=== PATIENT | male | born 1960 | race Caucasian/White ===

== ENCOUNTER 2025-05-17 11:25 | Inpatient (IN) ==
[2025-05-17] MEDS: SODIUM CHLORIDE 0.9% 1,000 ML IV SCH ×2 (12:00→19:54)
--- NOTE | 2025-05-17 12:00 | Emergency Department Note ---
Impression & Plan Vasovagal syncope, Rectal bleeding, Sinus pause, Acute dehydration ED Provider Note NAME: DEBRA MEREDITH AGE: 65 SEX: M : 1960 ARRIVES VIA: Walk-In INFORMANT: Patient, ED PROVIDER(S): Dani Degroot MD CHIEF COMPLAINT: GI bleeding MEDICAL DECISION MAKING: Patient presents due to concern for rectal bleeding. IV was established blood work was obtained along with 2 large-bore IVs and IV fluids were ordered. No abdominal pain on exam. The patient's blood work shows a normal white count hemoglobin of 13.8 normal platelet count kidney function is unremarkable. Axillary fluid I was called to the group emergently the patient reportedly had had a sinus pause and had syncopized. The patient was noted to have blood in his underwear. The second IV was placed the patient was placed on 2 L nasal cannula IV fluids ordered POC BMP in addition to H&H and type and screen were ordered. Excellent patient's [id number] BMP did show concern for hemoglobin of 9.9 so I did order 2 units to give. Repeat H&H though did show a relatively unchanged hemoglobin. There was a stat consult in for GI given these initial concerns. I did ask ED charge nurse to call blood bank and just have the 2 units on hold for now. I did speak with Dr. Botello given the patient's sinus pause who agree that this is likely a vagal response likely from the bloody bowel movement and he believes that this is likely situational in nature. Repeat EKG does not show any obvious arrhythmia or ischemia. I did speak with Ning Corley PA-C with Dr. Raymond and the patient was admitted to the medicine service. I also did speak with Caitie De Los Santos PA-C with Dr. Vyas with GI. Patient was admitted to the medicine service. The patient was reassessed and was doing well. The patient was normal cardiac and normotensive. Discussion w/ other healthcare providers: Dr. Botello cardiology Ning Corley PA-C with Dr. Raymond inpatient medicine service Caitie De Los Santos PA-C with Dr. Vyas gastroenterology Prior /Outside records reviewed: None Differential diagnosis: Diverticulitis, AVM, coagulopathy, colitis, inflammatory bowel disease, malignancy, esophagitis, peptic ulcer disease, variceal bleed, gastritis, fissure, hemorrhoids, as well as other pathologies. Diagnostics, as interpreted by me: ECG: Sinus tachycardia, rate 102, normal intervals, normal axis no ST elevations. Repeat EKG interpreted by myself Normal sinus rhythm, rate of 84, normal intervals, normal axis no ST elevations. Cardiac monitoring: An order was placed for continuous cardiac monitoring. The monitor shows a rate of 85 with sinus rhythm. Patient was placed on pulse oximetry Medical decision rules: None Imaging studies: None HPI: Patient presents due to concern for rectal bleeding. The patient states that he noticed this beginning this morning and has had about 6 bowel movements that have been bloody in nature with associated clots. He denies any history of inflammatory bowel disease. Colonoscopy within the last several years and reportedly unremarkable. They did call the triage nurse who referred them here for evaluation. He denies any NSAID use does not use tobacco. He does drink occasionally but not daily. He denies any abdominal pain or nausea vomiting. He did state that he had about 12 ounces of coffee this morning and has not been drinking as much water the last several days. He does not take any blood thinning medications or antiplatelets. PAST MEDICAL HISTORY: See Below PAST SURGICAL HISTORY: See Below SOCIAL HISTORY: See Below HOME MEDICATIONS: See Below ALLERGIES: See Below VITALS: See Below PHYSICAL EXAMINATION: GENERAL: NAD, non-toxic. BMI 36. Wearing glasses. EYE EXAM: Normal conjunctiva. PERRL, no anisocoria and EOM's grossly intact w/o pain. OROPHARYNX: Moist mucus membranes, grossly normal dentition. NECK: Trachea midline, no stridor. LUNGS: Clear to auscultation. Normal chest wall mechanics. HEART: NSR, no MRG. ABDOMEN: Abdomen soft, non-tender, no masses, no rebound or guarding. BACK: No CVA TTP. SKIN: No rashes and no bruising. UPPER EXTREMITIES: Upper extremities are grossly normal. LOWER EXTREMITIES: Grossly normal, no edema. NEURO EXAM: Awake and alert, follows commands, no obvious facial asymmetry, normal speech, moves all 4 extremities. Past Med/Surg History Problem List (Updated 05/17/25 @ 18:24 by Dani Degroot MD) Acute dehydration (Acute) Sinus pause (Acute) Rectal bleeding (Acute) Vasovagal syncope (Acute) Hyperlipidemia BRBPR (bright red blood per rectum) Hypothyroidism HTN (hypertension) Diarrhea Rosacea Hypokalemia Hepatosplenomegaly BPH (benign prostatic hyperplasia) Sepsis Fever (Acute) UTI (urinary tract infection) (Acute) Proteus infection Urinary retention (Acute) Family History Other No pertinent family history Social History Smoking Status: Never smoker Second Hand Exposure: No; Do You Dip or Chew Tobacco: No; Hx Alcohol Use: Yes Alcohol type: beer Hx Substance Use: No Preferred Language: Latvian Communication Ability: Effective Beliefs That Will Affect Care: None Current Living Situation: Spouse Feels Safe at Home: Yes Assistive Devices: None Allergies Allergies Allergy/AdvReac Type Severity Reaction Status Date / Time Sulfa (Sulfonamide Allergy Intermediate RASH, Verified 02/20/18 21:39 Antibiotics) HIVES, ITCHINESS Home Meds Home Medications Medication Instructions Recorded Confirmed Lactobacillus acidophilus 10 1 cap PO TIDM 02/20/18 02/20/18 billion cell capsule (Probiotic) albuterol sulfate 90 mcg/actuation 2 puff inhalation Q4 PRN Shortness 02/20/18 02/20/18 aerosol inhaler (ProAir HFA) Of Breath Or Wheezing ciprofloxacin HCl 500 mg tablet 500 mg PO BID 02/20/18 02/20/18 (Cipro) doxycycline hyclate 100 mg tablet 100 mg PO DAILY 02/20/18 02/20/18 levothyroxine 50 mcg tablet 50 mcg PO DAILY 02/20/18 02/20/18 lisinopril 2.5 mg tablet 2.5 mg PO DAILY 02/20/18 02/20/18 montelukast 10 mg tablet 10 mg PO PM 02/20/18 02/20/18 (Singulair) ddwodbco-zhm-ehmzv acid 0.4 1 tab PO DAILY 02/20/18 02/20/18 mg-lycopene 300 mcg-lutein 250 mcg tablet (Centrum Silver) pravastatin 20 mg tablet 20 mg PO DAILY 02/20/18 02/20/18 sildenafil 25 mg tablet 25 mg PO DAILY PRN Erectile 02/20/18 02/20/18 Dysfunction tamsulosin 0.4 mg capsule (Flomax) 0.4 mg PO DAILY 02/20/18 02/20/18 Results & Data (ED) Vital Signs Vital Signs - 24 hr 05/17/25 11:29 05/17/25 11:56 05/17/25 11:56 Temperature 36.4 C L Temperature Source Temporal Artery Scan Pulse Rate 110 H 102 H Pulse Rate [Apical] 102 H Respiratory Rate 19 16 16 Respiratory Effort / Characteristics Non-Labored Spontaneous Non-Labored Spontaneous Respiratory Depth Normal Respiratory Pattern Regular Blood Pressure 161/72 H Blood Pressure [Right Arm] 128/66 Blood Pressure Mean 101 Blood Pressure Mean [Right Arm] 86 Pulse Oximetry 96 95 95 Oxygen Delivery Method Room Air Room Air Room Air Sepsis Recent Fever Within 48 Hours No Sepsis New/Unexplained Change in Mental Status N/A Sepsis Action Taken by Nursing No Action Required 05/17/25 12:06 05/17/25 13:00 05/17/25 13:03 Temperature Temperature Source Pulse Rate 98 H 0 L 50 L Pulse Rate [Apical] Respiratory Rate Respiratory Effort / Characteristics Respiratory Depth Respiratory Pattern Blood Pressure Blood Pressure [Right Arm] Blood Pressure Mean Blood Pressure Mean [Right Arm] Pulse Oximetry Oxygen Delivery Method Sepsis Recent Fever Within 48 Hours Sepsis New/Unexplained Change in Mental Status Sepsis Action Taken by Nursing 05/17/25 13:09 05/17/25 13:34 05/17/25 16:53 Temperature Temperature Source Pulse Rate 80 80 Pulse Rate [Apical] 80 Respiratory Rate 16 Respiratory Effort / Characteristics Respiratory Depth Respiratory Pattern Blood Pressure Blood Pressure [Right Arm] 107/51 L Blood Pressure Mean Blood Pressure Mean [Right Arm] 69 Pulse Oximetry 98 Oxygen Delivery Method Room Air Sepsis Recent Fever Within 48 Hours Sepsis New/Unexplained Change in Mental Status Sepsis Action Taken by Nursing 05/17/25 18:09 Temperature Temperature Source Pulse Rate Pulse Rate [Apical] 101 H Respiratory Rate 20 Respiratory Effort / Characteristics Non-Labored Respiratory Depth Normal Respiratory Pattern Blood Pressure Blood Pressure [Right Arm] 129/91 Blood Pressure Mean Blood Pressure Mean [Right Arm] 103 Pulse Oximetry 97 Oxygen Delivery Method Room Air Sepsis Recent Fever Within 48 Hours Sepsis New/Unexplained Change in Mental Status Sepsis Action Taken by [facility] Medications Current Medication List: was personally reviewed by me Laboratory Data Attestation: I reviewed the patient's lab results. 05/17/25 Unknown 05/17/25 11:50 Lab Results 05/17/25 05/17/25 05/17/25 Range/Units 11:50 11:52 12:57 WBC 9.86 (4.8-10.8) K/ul RBC 4.30 L (4.70-6.10) M/uL Hgb 13.8 L (14.0-18.0) g/dL POC Hgb (14.0-18.0) g/dl Hct 38.5 L (42.0-52.0) % POC Hct (42-52) % MCV 89.5 (80.0-100.0) fL MCH 32.1 (25.0-34.0) pg MCHC 35.8 (32.0-36.0) g/dL RDW Std Deviation 41.6 (36.4-46.3) fL RDW Coeff of Hannah 12.5 (11.5-14.5) % Plt Count 145 (130-400) K/uL MPV 11.9 (9.4-12.4) fL Immature Gran % (Auto) 0.3 % Neut % (Auto) 80.6 % Lymph % (Auto) 13.2 % [place] % (Auto) 4.9 % Eos % (Auto) 0.7 % Baso % (Auto) 0.3 % Neut # (Auto) 7.95 H (1.40-6.50) K/uL Lymph # (Auto) 1.30 (1.20-3.40) K/uL [place] # (Auto) 0.48 (0.11-0.59) K/uL Eos # (Auto) 0.07 (0.00-0.50) K/uL Baso # (Auto) 0.03 (0.00-0.20) K/uL Immature Gran # (Auto) 0.03 (0.01-0.20) K/uL PT 11.1 (9.0-12.0) Seconds INR 1.1 (0.9-1.1) APTT 25 (21-31) Seconds PTT Ratio 0.9 POC Sodium (135-144) mmol/L Sodium 139 (136-145) mmol/L POC Potassium (3.3-5.0) mmol/L Potassium 4.0 (3.5-5.1) mmol/L POC Chloride (101-112) mmol/L Chloride 107 (98-107) mmol/L Carbon Dioxide 24 (21-32) mmol/L POC Total CO2 (24-31) mmol/L Anion Gap 8 (3-11) POC Anion Gap (16-25) mmol/L POC BUN (7-18) mg/dl BUN 18 (6-23) mg/dl Creatinine 0.66 (0.6-1.4) mg/dl POC Creatinine (0.6-1.3) mg/dl Est Cr Clr Drug Dosing 134.6 ml/min eGFR 102.80 BUN/Creatinine Ratio 27.3 H (10-20) Glucose 148 H (70-99(Fasting)) mg/dl POC Glucose 122 H (70-99) mg/dl POC Glucose (other) (70-99) mg/dl Calcium 9.4 (8.6-10.3) mg/dl POC Ioniz Calcium Kassi (1.12-1.32) mmol/l Total Bilirubin 0.8 (0.2-1.0) mg/dl AST 20 (13-39) U/L ALT 18 (7-52) U/L Alkaline Phosphatase 87 (34-104) U/L Total Protein 6.8 (6.0-8.3) gm/dl Albumin 4.2 (3.4-5.0) gm/dl Globulin 2.6 (2.5-4.0) gm/dl Albumin/Globulin Ratio 1.6 (0.9-2) POC Stool Occult Blood Positive A (Negative) Blood Type Antibody Screen Crossmatch 05/17/25 05/17/25 05/17/25 Range/Units 13:00 13:30 13:50 WBC (4.8-10.8) K/ul RBC (4.70-6.10) M/uL Hgb 13.4 L (14.0-18.0) g/dL POC Hgb 9.9 L 10.2 L (14.0-18.0) g/dl Hct 37.2 L (42.0-52.0) % POC Hct 29 L 30 L (42-52) % MCV (80.0-100.0) fL MCH (25.0-34.0) pg MCHC (32.0-36.0) g/dL RDW Std Deviation (36.4-46.3) fL RDW Coeff of Hannah (11.5-14.5) % Plt Count (130-400) K/uL MPV (9.4-12.4) fL Immature Gran % (Auto) % Neut % (Auto) % Lymph % (Auto) % [place] % (Auto) % Eos % (Auto) % Baso % (Auto) % Neut # (Auto) (1.40-6.50) K/uL Lymph # (Auto) (1.20-3.40) K/uL [place] # (Auto) (0.11-0.59) K/uL Eos # (Auto) (0.00-0.50) K/uL Baso # (Auto) (0.00-0.20) K/uL Immature Gran # (Auto) (0.01-0.20) K/uL PT (9.0-12.0) Seconds INR (0.9-1.1) APTT (21-31) Seconds PTT Ratio POC Sodium 141 141 (135-144) mmol/L Sodium (136-145) mmol/L POC Potassium 3.8 3.8 (3.3-5.0) mmol/L Potassium (3.5-5.1) mmol/L POC Chloride 106 106 (101-112) mmol/L Chloride (98-107) mmol/L Carbon Dioxide (21-32) mmol/L POC Total CO2 23 L 20 L (24-31) mmol/L Anion Gap (3-11) POC Anion Gap 17.0 19.0 (16-25) mmol/L POC BUN 16 16 (7-18) mg/dl BUN (6-23) mg/dl Creatinine (0.6-1.4) mg/dl POC Creatinine 0.8 0.7 (0.6-1.3) mg/dl Est Cr Clr Drug Dosing ml/min eGFR BUN/Creatinine Ratio (10-20) Glucose (70-99(Fasting)) mg/dl POC Glucose (70-99) mg/dl POC Glucose (other) 158 H 156 H (70-99) mg/dl Calcium (8.6-10.3) mg/dl POC Ioniz Calcium Kassi 1.13 1.14 (1.12-1.32) mmol/l Total Bilirubin (0.2-1.0) mg/dl AST (13-39) U/L ALT (7-52) U/L Alkaline Phosphatase (34-104) U/L Total Protein (6.0-8.3) gm/dl Albumin (3.4-5.0) gm/dl Globulin (2.5-4.0) gm/dl Albumin/Globulin Ratio (0.9-2) POC Stool Occult Blood (Negative) Blood Type O Positive Antibody Screen NEGATIVE Crossmatch See Detail 05/17/25 Range/Units Unknown WBC (4.8-10.8) K/ul RBC (4.70-6.10) M/uL Hgb 11.4 L (14.0-18.0) g/dL POC Hgb (14.0-18.0) g/dl Hct 32.6 L (42.0-52.0) % POC Hct (42-52) % MCV (80.0-100.0) fL MCH (25.0-34.0) pg MCHC (32.0-36.0) g/dL RDW Std Deviation (36.4-46.3) fL RDW Coeff of Hannah (11.5-14.5) % Plt Count (130-400) K/uL MPV (9.4-12.4) fL Immature Gran % (Auto) % Neut % (Auto) % Lymph % (Auto) % [place] % (Auto) % Eos % (Auto) % Baso % (Auto) % Neut # (Auto) (1.40-6.50) K/uL Lymph # (Auto) (1.20-3.40) K/uL [place] # (Auto) (0.11-0.59) K/uL Eos # (Auto) (0.00-0.50) K/uL Baso # (Auto) (0.00-0.20) K/uL Immature Gran # (Auto) (0.01-0.20) K/uL PT (9.0-12.0) Seconds INR (0.9-1.1) APTT (21-31) Seconds PTT Ratio POC Sodium (135-144) mmol/L Sodium (136-145) mmol/L POC Potassium (3.3-5.0) mmol/L Potassium (3.5-5.1) mmol/L POC Chloride (101-112) mmol/L Chloride (98-107) mmol/L Carbon Dioxide (21-32) mmol/L POC Total CO2 (24-31) mmol/L Anion Gap (3-11) POC Anion Gap (16-25) mmol/L POC BUN (7-18) mg/dl BUN (6-23) mg/dl Creatinine (0.6-1.4) mg/dl POC Creatinine (0.6-1.3) mg/dl Est Cr Clr Drug Dosing ml/min eGFR BUN/Creatinine Ratio (10-20) Glucose (70-99(Fasting)) mg/dl POC Glucose (70-99) mg/dl POC Glucose (other) (70-99) mg/dl Calcium (8.6-10.3) mg/dl POC Ioniz Calcium Kassi (1.12-1.32) mmol/l Total Bilirubin (0.2-1.0) mg/dl AST (13-39) U/L ALT (7-52) U/L Alkaline Phosphatase (34-104) U/L Total Protein (6.0-8.3) gm/dl Albumin (3.4-5.0) gm/dl Globulin (2.5-4.0) gm/dl Albumin/Globulin Ratio (0.9-2) POC Stool Occult Blood (Negative) Blood Type Antibody Screen Crossmatch Administered Medications Piperacillin Sod/Tazobactam Sod (Zosyn) 4.5 gm in 100 mls @ 25 mls/hr IV ONE ONE; Protocol Stop: 05/17/25 20:44 Last Admin: 05/17/25 17:18 Dose: 25 mls/hr Documented By: SYLVESTER Discontinued Medications Sodium Chloride (Nss) 1,000 mls @ 999 mls/hr IV .Q1H1M MIKE Stop: 05/17/25 13:00 Last Infusion: 05/17/25 13:04 Dose: Infused Documented By: Admin: 05/17/25 12:00 Dose: 999 mls/hr Documented By: NATHALIE Sodium Chloride (Nss) 1,000 mls @ 999 mls/hr IV .Q1H1M ONE Stop: 05/17/25 13:56 Last Infusion: 05/17/25 14:08 Dose: Infused Documented By: Admin: 05/17/25 12:56 Dose: 999 mls/hr Documented By: SHEYLA Sodium Chloride (Nss) 500 mls @ 999 mls/hr IV .Q31M ONE Stop: 05/17/25 14:25 Last Infusion: 05/17/25 14:39 Dose: Infused Documented By: Admin: 05/17/25 13:59 Dose: 999 mls/hr Documented By: SHEYLA Ioversol (Optiray 320 125ml) 118 ml IV ONCE ONE Stop: 05/17/25 15:31 Last Admin: 05/17/25 15:30 Dose: 118 ml Documented By: MONA Imaging Data Radiologist's Impression: Abdomen/Pelvis CTA 05/17/25 14:24 CT angio abdomen pelvis w con CLINICAL HISTORY: 65 years-old Male with BRBPR, syncope acute rectal bleeding COMPARISON STUDY: CT abdomen and pelvis 02/21/2018 TECHNIQUE: Following the IV administration of 118 cc of Optiray, CT angiogram of the abdomen and pelvis was performed from the lung bases the proximal femora. Images are reviewed in the axial, sagittal, and coronal planes. 3-D MIPS images are created and assessed. All measurements were obtained according to NASCET criteria. IV contrast was administered without complication. A dose lowering technique was utilized adhering to the principles of ALARA. CT DOSE: 1473.41 mGy.cm FINDINGS: CTA: Fusiform dilation of the ascending thoracic aorta is partially imaged measuring up to approximately 7 cm. There is mild atherosclerosis of the abdominal aorta and branch vessels. There is no abdominal aortic aneurysm or dissection. There is patency of the celiac trunk, superior and inferior mesenteric and bilateral renal arteries. The iliac and imaged femoral arteries appear patent. No active extravasation or retroperitoneal hemorrhage. CT ABDOMEN/PELVIS: Clear lung bases. No pneumatosis or pneumoperitoneum. The spleen measures 16 cm in length. Unremarkable pancreas, gallbladder and adrenal glands. The liver is within normal limits. There are a few nonobstructing calculi within the bilateral kidneys measuring up to 4 mm. 2.6 cm right renal cyst. No hydronephrosis. Mild prostatomegaly. Partial distention of the urinary bladder. Small fat filled right inguinal hernia. Postoperative changes of the bilateral inguinal distributions. Mildly inflamed fat filled umbilical hernia, diastases of 3.8 cm. A right spigelian hernia demonstrates diastases of 11 mm. No bowel obstruction. Colonic diverticulosis with mild acute diverticulitis of the hepatic flexure and proximal transverse colon. No abscess. Normal appendix. Unremarkable soft tissues. No acute fracture. IMPRESSION: 1. Mild acute diverticulitis of the ascending and transverse colon. 2. No bowel obstruction, pneumoperitoneum or abscess. 3. Partially imaged aneurysm dilation of the ascending thoracic aorta measures up to approximately 7 cm. This could be further evaluated with dedicated CTA of the chest. 4. Otherwise unremarkable CTA of the abdomen and pelvis. 5. Nonobstructing bilateral nephrolithiasis. 6. Fat filled umbilical hernia with mild inflammatory changes. ACT 112: Negative or not required by law. The above report was generated using voice recognition software. It may contain grammatical, syntax or spelling errors. Electronically signed by: Say Dykes M.D. 05/17/2025 4:00 PM Discharge Plan Visit Data Chief Complaint: Rectal Bleed Stated Complaint: VERY BLOOD BOWEL MOVEMENTS/ALL LIQUID ED Provider: Dani Degroot Discharge Problem: Vasovagal syncope, Rectal bleeding, Sinus pause, Acute dehydration Patient Disposition: Admitted As Inpatient Condition: Good Forms Stand Alone Forms: [employer] Prescriptions Prescriptions: No Action ciprofloxacin HCl [Cipro] 500 mg Tablet 500 mg PO BID Rx Instructions: STARTED 02/19/18 FOR 10 DAYS. sildenafil 25 mg Tablet 25 mg PO DAILY PRN (Reason: Erectile Dysfunction) tamsulosin [Flomax] 0.4 mg Capsule 0.4 mg PO DAILY levothyroxine 50 mcg Tablet 50 mcg PO DAILY montelukast [Singulair] 10 mg Tablet 10 mg PO PM pravastatin 20 mg Tablet 20 mg PO DAILY albuterol sulfate [ProAir HFA] 90 mcg/actuation Hfa Aerosol Inhaler 2 puff INHALATION Q4 PRN (Reason: Shortness Of Breath Or Wheezing) lisinopril 2.5 mg Tablet 2.5 mg PO DAILY doxycycline hyclate 100 mg Tablet 100 mg PO DAILY fjosbzfc-zga-CV-lycopen-lutein [Centrum Silver] 0.4-300-250 mg-mcg-mcg Tablet 1 tab PO DAILY Lactobacillus acidophilus [Probiotic] 10 billion cell Capsule 1 cap PO TIDM Referrals Referrals: Bruce Hastings MD [Hospitalist] -
[2025-05-17 12:23] LABS: Hematocrit (blood only) 38.5 % (42.0-52.0); Hemoglobin 13.8 g/dL (14.0-18.0); Immature Granulocytes # (auto) 0.03 K/uL (0.01-0.20); Immature Granulocytes % (auto) 0.3 %; Mean Corpuscular Hemoglobin 32.1 pg (25.0-34.0); Mean Corpuscular Volume 89.5 fL (80.0-100.0); Platelet Count 145 K/uL (130-400); RDW Standard Deviation 41.6 fL (36.4-46.3); Red Blood Count 4.30 M/uL (4.70-6.10); White Blood Count 9.86 K/ul (4.8-10.8)
[2025-05-17 12:41] LABS: Alanine Aminotransferase 18.0 U/L (7-52); Albumin Globulin Ratio 1.6 (0.9-2); Albumin Level 4.2 gm/dl (3.4-5.0); Alkaline Phosphatase 87.0 U/L (34-104); Anion Gap 8.0 (3-11); Bilirubin,Total 0.8 mg/dl (0.2-1.0); Blood Urea Nitrogen 18.0 mg/dl (6-23); Calcium 9.4 mg/dl (8.6-10.3); Carbon Dioxide 24.0 mmol/L (21-32); Chloride 107.0 mmol/L (98-107); Creatinine Clr Calc Pharmacy 134.6 ml/min; Globulin 2.6 gm/dl (2.5-4.0); Glucose 148.0 mg/dl (70-99(Fasting)); Potassium 4.0 mmol/L (3.5-5.1); Sodium 139.0 mmol/L (136-145); Total Protein 6.8 gm/dl (6.0-8.3)
[2025-05-17 12:49] LABS: INR 1.1 (0.9-1.1); Partial Thromboplastin Time 25 Seconds (21-31); Prothrombin Time 11.1 Seconds (9.0-12.0)
[2025-05-17] MEDS: SODIUM CHLORIDE 0.9% 1,000 ML IV ONE (12:56)
[2025-05-17 13:32] LABS: Hematocrit (blood only) 37.2 % (42.0-52.0); Hemoglobin 13.4 g/dL (14.0-18.0)
[2025-05-17] MEDS ORDERED: SODIUM CHLORIDE 0.9% 100 ML IV PRN ×2 (13:33→19:21)
[2025-05-17] MEDS: SODIUM CHLORIDE 0.9% 500 ML IV ONE (13:59)
--- NOTE | 2025-05-17 14:07 | History & Physical Report ---
<Statement entered by Eduin Raymond MD - 05/19/25 09:14> I was present at the bedside, performed koehler exam points and discussed the patient below with the PA at the time of admission and transfer. I agree with the below documented assessment and plan, transfer to tertiary care for acute GI bleed complicated by complex vascular comorbidities. Case reviewed with promotional advertising assistant vascular surgery during the triage and decision making process. Date of Service May 17, 2025 Assessment & Plan (1) BRBPR (bright red blood per rectum): (2) Diarrhea: (3) Hypothyroidism: (4) HTN (hypertension): (5) Hyperlipidemia: Plan Pt is a 65 M with a PMHx significant for Asthma, Hypothyroidism, HTN, HLD, BPH who presented to the ED c/o BRBPR w/ AM BMs. While in the ED, pt received CTAP revealed moderate colonic diverticulosis without evidence of diverticulitis, enlarged prostate w/ bladder outlet obstruction, bladder wall thickening suggestive of cystitis, hepatomegaly w/ severe steatosis, nonobstructing Lt renal calculi. H+H 13.8 --> 13.4 --> 11.4 --> 10.2 while in ED. pRBCs ordered and currently on standby. #Thoracic Aneurysm - 05/17 CTA of Abdomen and Pelvis w/ fusiform ascending thoracic aorta measuring up to 7cm; Pt w/out CP and palpitations at time of admission -BP 107/51, pt currently asx -CT results discussed with Dr Miller, who additionally reviewed CT; pt should be transferred to tertiary care facility -Messaged Dr Hernandez to notify about results of CT Actively working on transfer to tertiary care facility so that patient may be assessed by cardiothoracic surgery. #BRBPR | Diarrhea | Diverticulitis - Last Colonoscopy 04/2021 from [facility], pt unable to access records on portal; 05/17 CTAP w/ diverticulosis w/ no acute evidence of diverticulitis; 05/17 CTA-AP w/ mild acute diverticulitis of ascending and transverse colon, no abscess or obstruction -GI consulted -NPO -Protonix 40mg IV BID -NSS 0.9 @80 mL/hr -Monitor VS closely -STAT H+H ordered -H+H Q4H, monitor closely -CBC, BMP in AM -2 units pRBCs ordered. If additional units needed or pt becomes hemodynamically unstable, MTP should be initiated. #Sinus Pause noted on Rhythm Strip in ED - -Most likely vagal event secondary to blood loss -Admit Med/Tele -EKG prn palpitations or chest pain #Hypothyroidism - No acute concerns -Continue Levothyroxine 50mcg #HTN | HLD - No acute concerns -Continue Lisinopril 10, pravastatin 40 #Asthma - No acute concerns -Continue Albuterol #BPH - Not currently managed with medication; 05/17 CTAP w/ enlarged prostate w/ bladder outlet obstruction + bladder wall thickening consistent w/ cystitis - pt is asx #Rosacea - no acute concerns -Doxycycline 100 po daily VTE Proph: SCDs, chemo proph deferred d/t rectal bleeding Dispo: Admit PCU History of Present Illness Chief Complaint: BRBPR Primary Care Provider: Floresita Dixon Pt is a 65 M with a PMHx significant for Asthma, Hypothyroidism, HTN, HLD, BPH, and Rosacea who presented to the ED c/o BRBPR w/ AM BMs. Pt states that around 09:30 this AM that he felt a gurgling sensation in his abdomen and he when he went to be bathroom, he experienced a bowel movement where he passed a large amount of bright red blood. Pt noted that he experienced a total of 5 bloody bowel movements prior to coming to ED. He notes that he had experienced a WNL BM at 06:30 this AM and was very alarmed by the large amount of blood passed there after. Pt notes that he reported to the ED after his 5th bloody BM. Pt states that he does not take any anticoagulants at home. His last colonoscopy was in April of 2021 but the results are currently unknown, attempted to access online report but was unable to. Pt denies lightheadedness/dizziness, chest pain, palpitations, abd pain, N/V/D, SOB, cough, congestion, sore throat, and H/A. Pt notes that he had 3 crackers for breakfast and has not consumed anything else this AM. Pt notes that he noticed a "small abnormal bump" near his rectum about 1.5wks [employer], that was mildly uncomfortable. He notes that he used tucks pads at that time with resolution. Pt was transported to the ED via . While in the ED, pt received CTAP revealed moderate colonic diverticulosis without evidence of diverticulitis, enlarged prostate w/ bladder outlet obstruction, bladderwall thickening suggestive of cystitis, hepatomegaly w/ severe steatosis, nonobstructing Lt renal calculi. H+H 13.8 --> 13.4 --> 11.4 --> 10.2 while in ED. pRBCs ordered and on standby. Pt is being admitted for further evaluation and care. Allergies Allergy/AdvReac Type Severity Reaction Status Date / Time Sulfa (Sulfonamide Allergy Intermediate RASH, Verified 02/20/18 21:39 Antibiotics) HIVES, ITCHINESS Home Medications Medication Instructions Recorded Confirmed Type Lactobacillus acidophilus 10 1 cap PO TIDM 02/20/18 02/20/18 History billion cell capsule (Probiotic) albuterol sulfate 90 mcg/actuation 2 puff inhalation Q4 PRN Shortness 02/20/18 02/20/18 History aerosol inhaler (ProAir HFA) Of Breath Or Wheezing ciprofloxacin HCl 500 mg tablet 500 mg PO BID 02/20/18 02/20/18 History (Cipro) doxycycline hyclate 100 mg tablet 100 mg PO DAILY 02/20/18 02/20/18 History levothyroxine 50 mcg tablet 50 mcg PO DAILY 02/20/18 02/20/18 History lisinopril 2.5 mg tablet 2.5 mg PO DAILY 02/20/18 02/20/18 History montelukast 10 mg tablet 10 mg PO PM 02/20/18 02/20/18 History (Singulair) xycspqom-cyr-jghzr acid 0.4 1 tab PO DAILY 02/20/18 02/20/18 History mg-lycopene 300 mcg-lutein 250 mcg tablet (Centrum Silver) pravastatin 20 mg tablet 20 mg PO DAILY 02/20/18 02/20/18 History sildenafil 25 mg tablet 25 mg PO DAILY PRN Erectile 02/20/18 02/20/18 History Dysfunction tamsulosin 0.4 mg capsule (Flomax) 0.4 mg PO DAILY 02/20/18 02/20/18 History Past Med/Surg History Problem List (Updated 05/17/25 @ 18:24 by Dani Degroot MD) Acute dehydration (Acute) Sinus pause (Acute) Rectal bleeding (Acute) Vasovagal syncope (Acute) Hyperlipidemia BRBPR (bright red blood per rectum) Hypothyroidism HTN (hypertension) Diarrhea Rosacea Hypokalemia Hepatosplenomegaly BPH (benign prostatic hyperplasia) Sepsis Fever (Acute) UTI (urinary tract infection) (Acute) Proteus infection Urinary retention (Acute) Family History Other No pertinent family history Social History Smoking Status: Never smoker Second Hand Exposure: No; Do You Dip or Chew Tobacco: No; Hx Alcohol Use: Yes Alcohol type: beer Hx Substance Use: No Preferred Language: Palauan Communication Ability: Effective Beliefs That Will Affect Care: None Current Living Situation: Spouse Feels Safe at Home: Yes Assistive Devices: None Review of Systems Review of Systems: All systems reviewed & are unremarkable except as noted in Subjective Physical Exam Physical Exam: General: Pt is a 65 y/o obese M in NAD in bed. VS: reviewed, remarkable - BP 107/51 Skin: Warm and dry; no lesions or ulcerations Respiratory: CTA bilat, no adventitious sounds noted. Chest expansion is full and symmetrical Cardio: RRR no murmurs GI: Round, normoactive BS x4, tender to palpation of lower abdomen; Note 3 hats were ween in bathroom with BR blood present in them, produced photos of home bloody BMs which appeared to have a notable amount of blood MSK: FROM of extremities, no deformities Extremities: no edema Neuro: A&Ox4, cooperative Results & Data Results & Data Vital Signs (Past 12 Hours) Vital Signs Temp Pulse Pulse Resp BP BP Pulse Ox 05/17/25 13:34 80 16 107/51 L 98 05/17/25 13:09 80 05/17/25 13:03 50 L 05/17/25 13:00 0 L 05/17/25 12:06 98 H 05/17/25 11:56 102 H 16 95 05/17/25 11:56 102 H 16 128/66 95 05/17/25 11:29 97.5 F L 110 H 19 161/72 H 96 O2 Del Method 05/17/25 13:34 Room Air 05/17/25 13:09 05/17/25 13:03 05/17/25 13:00 05/17/25 12:06 05/17/25 11:56 Room Air 05/17/25 11:56 Room Air 05/17/25 11:29 Room Air Laboratory Results Reviewed: CBC, CMP, INR, FOBT Diagnostic Findings Reviewed: CTAP, CTA abdomen pelvis PG Care Time/CCT Total # of Minutes Spent Total Time Spent with Patient: Total time spent is greater than 50% in coordination of care (as documented) at patient's floor/unit and/or counseling patient: Coding Level of Care Code 67860 INT INP/OBS CARE 3/75MIN Diagnoses BRBPR (bright red blood per rectum) K62.5 Diarrhea R19.7 Hypothyroidism E03.9 HTN (hypertension) I10 Hyperlipidemia E78.5 Time Spent (min) 48 Comment [id number]
[2025-05-17 14:15] LABS: Hematocrit (blood only) 32.6 % (42.0-52.0); Hemoglobin 11.4 g/dL (14.0-18.0)
--- NOTE | 2025-05-17 14:25 | Gastrointestinal Consultation ---
Date of Consultation May 17, 2025 Assessment & Plan (1) BRBPR (bright red blood per rectum): Accompanied by flushing and syncope. Patient hypotensive at present. Hgb did drop from 13.8-->11.4. -Continue to monitor H/H. -CTA abd/pelvis for further evaluation. -Obtain copies of most recent colonoscopy from [facility] -Further recommendations pending results of this testing ADDENDUM: Patient's CTA returned as follows: IMPRESSION: 1. Mild acute diverticulitis of the ascending and transverse colon. 2. No bowel obstruction, pneumoperitoneum or abscess. 3. Partially imaged aneurysm dilation of the ascending thoracic aorta measures up to approximately 7 cm. This could be further evaluated with dedicated CTA of the chest. 4. Otherwise unremarkable CTA of the abdomen and pelvis. 5. Nonobstructing bilateral nephrolithiasis. 6. Fat filled umbilical hernia with mild inflammatory changes. -We will add IV Zosyn for diverticulitis coverage. Will defer further work-up of aortic aneurysm to primary team. Supervising Physician Co-Signing Physician Notes I saw and examined this patient with our nurse practitioner and agree with her assessment and plan. Clinical picture consistent with lower GI bleed possible cause for syncopal episode. CTA suggest some mild mid colonic diverticulitis. This would be an unusual presentation this diverticulitis is unlikely associated with significant GI bleeding. Suspect the most likely etiology is diverticular bleeding aggravated by recent use of NSAIDs. However in light of the findings on CT that is reasonable to empirically treat with a course of antibiotics. He will ultimately need a colonoscopy. CT scan suggests a thoracic aneurysm if there is concern would do a CT of the chest as radiology recommends. History of Present Illness Reason for Consultation: Lower GI bleeding History of Present Illness Patient is a 65 yo male who presented to [facility] with BRBPR. He notes that he was in his usual state of health, but felt warm, flushed, and dizzy at home. He then went to the restroom and passed BRBPR. He called his PCP who sent him to the ED. In the ED, he had a witnessed syncopal episode with sinus pause. He then had several episodes of BRBPR after that. No abdominal pain. No ASA/Plavix/blood thinners. No smoking history. He used NSAIDs yesterday and today but notes this is not typical for him. H/H 11.4/32.6. Hgb upon presentation was 13.8. BP 105/60 at the time of my visit. Last colonoscopy reportedly several years ago at [facility]. He believes this was unremarkable. I do not have a copy of this at the time of his admission. He is no longer having BRBPR by the time of my visit. He denies any abdominal pain. Allergies Allergy/AdvReac Type Severity Reaction Status Date / Time Sulfa (Sulfonamide Allergy Intermediate RASH, Verified 02/20/18 21:39 Antibiotics) HIVES, ITCHINESS Home Medications Medication Instructions Recorded Confirmed Type Lactobacillus acidophilus 10 1 cap PO TIDM 02/20/18 02/20/18 History billion cell capsule (Probiotic) albuterol sulfate 90 mcg/actuation 2 puff inhalation Q4 PRN Shortness 02/20/18 02/20/18 History aerosol inhaler (ProAir HFA) Of Breath Or Wheezing ciprofloxacin HCl 500 mg tablet 500 mg PO BID 02/20/18 02/20/18 History (Cipro) doxycycline hyclate 100 mg tablet 100 mg PO DAILY 02/20/18 02/20/18 History levothyroxine 50 mcg tablet 50 mcg PO DAILY 02/20/18 02/20/18 History lisinopril 2.5 mg tablet 2.5 mg PO DAILY 02/20/18 02/20/18 History montelukast 10 mg tablet 10 mg PO PM 02/20/18 02/20/18 History (Singulair) cukhpaky-yzm-jqzlp acid 0.4 1 tab PO DAILY 02/20/18 02/20/18 History mg-lycopene 300 mcg-lutein 250 mcg tablet (Centrum Silver) pravastatin 20 mg tablet 20 mg PO DAILY 02/20/18 02/20/18 History sildenafil 25 mg tablet 25 mg PO DAILY PRN Erectile 02/20/18 02/20/18 History Dysfunction tamsulosin 0.4 mg capsule (Flomax) 0.4 mg PO DAILY 02/20/18 02/20/18 History Patient History Family History Other No pertinent family history Social History Smoking Status: Never smoker Second Hand Exposure: No; Do You Dip or Chew Tobacco: No; Hx Alcohol Use: Yes Alcohol type: beer Hx Substance Use: No Preferred Language: Luxembourger Communication Ability: Effective Beliefs That Will Affect Care: None Current Living Situation: Spouse Feels Safe at Home: Yes Assistive Devices: None Review of Systems Constitutional: + sweats Respiratory: no cough and no dyspnea Cardiovascular: no chest pain Gastrointestinal: + problem reported (BRBPR); no abdominal pain, no heartburn, no nausea, no vomiting, no hematemesis, no dysphagia, no change in bowel habits, no constipation and no diarrhea/loose stools Physical Exam Constitutional: well developed Respiratory: normal respiratory effort Cardiovascular: Rate/Rhythm: regular rate Gastrointestinal (Abdomen): normal bowel sounds, soft, nontender, no hepatosplenomegaly Psychiatric: Orientation: alert and oriented x 3 Results & Data Vital Signs (Past 12 Hours) Vital Signs Temp Pulse Pulse Resp BP BP Pulse Ox 05/17/25 13:34 80 16 107/51 L 98 05/17/25 13:09 80 05/17/25 13:03 50 L 05/17/25 13:00 0 L 05/17/25 12:06 98 H 05/17/25 11:56 102 H 16 95 05/17/25 11:56 102 H 16 128/66 95 05/17/25 11:29 36.4 C L 110 H 19 161/72 H 96 O2 Del Method 05/17/25 13:34 Room Air 05/17/25 13:09 05/17/25 13:03 05/17/25 13:00 05/17/25 12:06 05/17/25 11:56 Room Air 05/17/25 11:56 Room Air 05/17/25 11:29 Room Air Laboratory Results Laboratory Results - last 48 hr 05/17/25 05/17/25 05/17/25 11:50 11:52 12:57 WBC 9.86 RBC 4.30 L Hgb 13.8 L POC Hgb Hct 38.5 L POC Hct MCV 89.5 MCH 32.1 MCHC 35.8 RDW Std Deviation 41.6 RDW Coeff of Hannah 12.5 Plt Count 145 MPV 11.9 Immature Gran % (Auto) 0.3 Neut % (Auto) 80.6 Lymph % (Auto) 13.2 [place] % (Auto) 4.9 Eos % (Auto) 0.7 Baso % (Auto) 0.3 Neut # (Auto) 7.95 H Lymph # (Auto) 1.30 [place] # (Auto) 0.48 Eos # (Auto) 0.07 Baso # (Auto) 0.03 Immature Gran # (Auto) 0.03 PT 11.1 INR 1.1 APTT 25 PTT Ratio 0.9 POC Sodium Sodium 139 POC Potassium Potassium 4.0 POC Chloride Chloride 107 Carbon Dioxide 24 POC Total CO2 Anion Gap 8 POC Anion Gap POC BUN BUN 18 Creatinine 0.66 POC Creatinine Est Cr Clr Drug Dosing 134.6 eGFR 102.80 BUN/Creatinine Ratio 27.3 H Glucose 148 H POC Glucose 122 H POC Glucose (other) Calcium 9.4 POC Ioniz Calcium Kassi Total Bilirubin 0.8 AST 20 ALT 18 Alkaline Phosphatase 87 Total Protein 6.8 Albumin 4.2 Globulin 2.6 Albumin/Globulin Ratio 1.6 POC Stool Occult Blood Positive A Blood Type Antibody Screen Crossmatch 05/17/25 05/17/25 05/17/25 13:00 13:30 13:50 WBC RBC Hgb 13.4 L POC Hgb 9.9 L 10.2 L Hct 37.2 L POC Hct 29 L 30 L MCV MCH MCHC RDW Std Deviation RDW Coeff of Hannah Plt Count MPV Immature Gran % (Auto) Neut % (Auto) Lymph % (Auto) [place] % (Auto) Eos % (Auto) Baso % (Auto) Neut # (Auto) Lymph # (Auto) [place] # (Auto) Eos # (Auto) Baso # (Auto) Immature Gran # (Auto) PT INR APTT PTT Ratio POC Sodium 141 141 Sodium POC Potassium 3.8 3.8 Potassium POC Chloride 106 106 Chloride Carbon Dioxide POC Total CO2 23 L 20 L Anion Gap POC Anion Gap 17.0 19.0 POC BUN 16 16 BUN Creatinine POC Creatinine 0.8 0.7 Est Cr Clr Drug Dosing eGFR BUN/Creatinine Ratio Glucose POC Glucose POC Glucose (other) 158 H 156 H Calcium POC Ioniz Calcium Kassi 1.13 1.14 Total Bilirubin AST ALT Alkaline Phosphatase Total Protein Albumin Globulin Albumin/Globulin Ratio POC Stool Occult Blood Blood Type O Positive Antibody Screen NEGATIVE Crossmatch See Detail 05/17/25 Unknown WBC RBC Hgb 11.4 L POC Hgb Hct 32.6 L POC Hct MCV MCH MCHC RDW Std Deviation RDW Coeff of Hannah Plt Count MPV Immature Gran % (Auto) Neut % (Auto) Lymph % (Auto) [place] % (Auto) Eos % (Auto) Baso % (Auto) Neut # (Auto) Lymph # (Auto) [place] # (Auto) Eos # (Auto) Baso # (Auto) Immature Gran # (Auto) PT INR APTT PTT Ratio POC Sodium Sodium POC Potassium Potassium POC Chloride Chloride Carbon Dioxide POC Total CO2 Anion Gap POC Anion Gap POC BUN BUN Creatinine POC Creatinine Est Cr Clr Drug Dosing eGFR BUN/Creatinine Ratio Glucose POC Glucose POC Glucose (other) Calcium POC Ioniz Calcium Kassi Total Bilirubin AST ALT Alkaline Phosphatase Total Protein Albumin Globulin Albumin/Globulin Ratio POC Stool Occult Blood Blood Type Antibody Screen Crossmatch PG Care Time/CCT Total # of Minutes Spent Total Time Spent with Patient: Total time spent is greater than 50% in coordination of care (as documented) at patient's floor/unit and/or counseling patient: Coding Level of Care Code 78927 INT INP/OBS CARE 3/75MIN Diagnoses BRBPR (bright red blood per rectum) K62.5
--- NOTE | 2025-05-17 14:39 | Electrocardiogram Report ---
Test Reason : Blood Pressure : */* mmHG Vent. Rate : 84 BPM Atrial Rate : 84 BPM P-R Int : 188 ms QRS Dur : 88 ms QT Int : 382 ms P-R-T Axes : 56 -5 60 degrees QTcB Int : 451 ms Normal sinus rhythm When compared with ECG of 20-Feb-2018 21:19, Nonspecific T wave abnormality no longer evident in Inferior leads Confirmed by Ricci Botello ([id number]) on 05/17/2025 2:39:10 PM Referred By: Confirmed By: Ricci Botello
[2025-05-17] MEDS: OPTIRAY 320 125ml IV ONE (15:30)
--- NOTE | 2025-05-17 16:01 | CT Scan Report ---
CT angio abdomen pelvis w con CLINICAL HISTORY: 65 years-old Male with BRBPR, syncope acute rectal bleeding COMPARISON STUDY: CT abdomen and pelvis 02/21/2018 TECHNIQUE: Following the IV administration of 118 cc of Optiray, CT angiogram of the abdomen and pelv is was performed from the lung bases the proximal femora. Images are reviewed in the axial, sagittal, and coronal planes. 3-D MIPS images are created and assessed. All measurements were obtained accordi ng to NASCET criteria. IV contrast was administered without complication. A dose lowering technique was utilized adhering to the principles of ALARA. CT DOSE: 1473.41 mGy.cm FINDINGS: CTA: Fusiform dilation of the ascending thoracic aorta is partially imaged measuring up to approximat tequila 7 cm. There is mild atherosclerosis of the abdominal aorta and branch vessels. There is no abdomi nal aortic aneurysm or dissection. There is patency of the celiac trunk, superior and inferior mesent nelida and bilateral renal arteries. The iliac and imaged femoral arteries appear patent. No active ext ravasation or retroperitoneal hemorrhage. CT ABDOMEN/PELVIS: Clear lung bases. No pneumatosis or pneumoperitoneum. The spleen measures 16 cm in length. Unremarkable pancreas, gallbladder and adrenal glands. The liver is within normal limits. Th ere are a few nonobstructing calculi within the bilateral kidneys measuring up to 4 mm. 2.6 cm right renal cyst. No hydronephrosis. Mild prostatomegaly. Partial distention of the urinary bladder. Small fat filled right inguinal hernia. Postoperative changes of the bilateral inguinal distributions. Mild ly inflamed fat filled umbilical hernia, diastases of 3.8 cm. A right spigelian hernia demonstrates d iastases of 11 mm. No bowel obstruction. Colonic diverticulosis with mild acute diverticulitis of the hepatic flexure an d proximal transverse colon. No abscess. Normal appendix. Unremarkable soft tissues. No acute fractur e. IMPRESSION: 1. Mild acute diverticulitis of the ascending and transverse colon. 2. No bowel obstruction, pneumoperitoneum or abscess. 3. Partially imaged aneurysm dilation of the ascending thoracic aorta measures up to approximately 7 cm. This could be further evaluated with dedicated CTA of the chest. 4. Otherwise unremarkable CTA of the abdomen and pelvis. 5. Nonobstructing bilateral nephrolithiasis. 6. Fat filled umbilical hernia with mild inflammatory changes. ACT 112: Negative or not required by law. The above report was generated using voice recognition software. It may contain grammatical, syntax o r spelling errors. Electronically signed by: Say Dykes M.D. 05/17/2025 4:00 PM
[2025-05-17] MEDS: PIPERACILLIN/TAZOBACTAM 4.5 GM/100 ML BAG IV ONE (17:18)
[2025-05-17] MEDS ORDERED: ONDANSETRON INJ 2 MG/ML 2 ML VIAL IV PRN (18:40)
[2025-05-17] MEDS ORDERED: MELATONIN 3 MG TAB PO PRN (18:40)
[2025-05-17] MEDS ORDERED: ACETAMINOPHEN 325 MG TAB PO PRN (18:40)
[2025-05-17] MEDS ORDERED: ALBUTEROL HFA 8 GM INHALER INH PRN (18:40)
[2025-05-17] MEDS ORDERED: NO NSAIDS SCH (18:40)
[2025-05-17 19:23] LABS: Hematocrit (blood only) 33.7 % (42.0-52.0); Hemoglobin 12.0 g/dL (14.0-18.0)
[2025-05-17] MEDS: PANTOprazole 40 MG/10 ML SYR IV SCH (19:54)
[2025-05-17] MEDS: PANTOprazole 40 MG/10 ML IVP IV ONE (19:55)
--- NOTE | 2025-05-17 21:08 | Discharge Summary ---
Discharge Summary Date of Service May 17, 2025 Principal Dx & Hospital Course #1 = Principal Diagnosis (1) BRBPR (bright red blood per rectum): (2) Diarrhea: (3) Hypothyroidism: (4) HTN (hypertension): (5) Hyperlipidemia: Plan Pt is a 65 M with a PMHx significant for Asthma, Hypothyroidism, HTN, HLD, BPH who presented to the ED c/o BRBPR w/ AM BMs. While in the ED, pt received CTAP revealed moderate colonic diverticulosis without evidence of diverticulitis, enlarged prostate w/ bladder outlet obstruction, bladder wall thickening suggestive of cystitis, hepatomegaly w/ severe steatosis, nonobstructing Lt renal calculi. H+H 13.8 --> 13.4 --> 11.4 --> 10.2 while in ED. pRBCs ordered and currently on standby. #Thoracic Aneurysm - 05/17 CTA of Abdomen and Pelvis w/ fusiform ascending thora cic aorta measuring up to 7cm; Pt w/out CP and palpitations at time of admission -BP 107/51, pt currently asx -CT results discussed with Dr Miller, who additionally reviewed CT; pt should be transferred to tertiary care facility -Messaged Dr Hernandez to notify about results of CT Actively working on transfer to tertiary care facility so that patient may be assessed by cardiothoracic surgery. #BRBPR | Diarrhea | Diverticulitis - Last Colonoscopy 04/2021 from [facility], pt unable to access records on portal; 05/17 CTAP w/ diverticulosis w/ no acute evidence of diverticulitis; 05/17 CTA-AP w/ mild acute diverticulitis of ascending and transverse colon, no abscess or obstruction -GI consulted -NPO -Protonix 40mg IV BID -NSS 0.9 @80 mL/hr -Monitor VS closely -STAT H+H ordered -H+H Q4H, monitor closely -CBC, BMP in AM -2 units pRBCs ordered. If additional units needed or pt becomes hemodynamically unstable, MTP should be initiated. #Sinus Pause noted on Rhythm Strip in ED - -Most likely vagal event secondary to blood loss -Admit Med/Tele -EKG prn palpitations or chest pain #Hypothyroidism - No acute concerns -Continue Levothyroxine 50mcg #HTN | HLD - No acute concerns -Continue Lisinopril 10, pravastatin 40 #Asthma - No acute concerns -Continue Albuterol #BPH - Not currently managed with medication; 05/17 CTAP w/ enlarged prostate w/ bladder outlet obstruction + bladder wall thickening consistent w/ cystitis - pt is asx #Rosacea - no acute concerns -Doxycycline 100 po daily VTE Proph: SCDs, chemo proph deferred d/t rectal bleeding [place]: [place] [facility] [place] HPI Per Admitting Provider Pt is a 65 M with a PMHx significant for Asthma, Hypothyroidism, HTN, HLD, BPH, and Rosacea who presented to the ED c/o BRBPR w/ AM BMs. Pt states that around 09:30 this AM that he felt a gurgling sensation in his abdomen and he when he went to be bathroom, he experienced a bowel movement where he passed a large amount of bright red blood. Pt noted that he experienced a total of 5 bloody bowel movements prior to coming to ED. He notes that he had experienced a WNL BM at 06:30 this AM and was very alarmed by the large amount of blood passed there after. Pt notes that he reported to the ED after his 5th bloody BM. Pt states that he does not take any anticoagulants at home. His last colonoscopy was in April of 2021 but the results are currently unknown, attempted to access online report but was unable to. Pt denies lightheadedness/dizziness, chest pain, palpitations, abd pain, N/V/D, SOB, cough, congestion, sore throat, and H/A. Pt notes that he had 3 crackers for breakfast and has not consumed an ything else this AM. Pt notes that he noticed a "small abnormal bump" near his rectum about 1.5wks [employer], that was mildly uncomfortable. He notes that he used tucks pads at that time with resolution. Pt was transported to the ED via . While in the ED, pt received CTAP revealed moderate colonic diverticulosis without evidence of diverticulitis, enlarged prostate w/ bladder outlet obstruction, bladderwall thickening suggestive of cystitis, hepatomegaly w/ severe steatosis, nonobstructing Lt renal calculi. H+H 13.8 --> 13.4 --> 11.4 --> 10.2 while in ED. pRBCs ordered and on standby. Pt is being admitted for further evaluation and care. Discharge Exam General: Pt is a 65 y/o obese M in NAD in bed. VS: reviewed, remarkable - BP 142/55, P 105 Skin: Warm and dry; no lesions or ulcerations Respiratory: CTA bilat, no adventitious sounds noted. Chest expansion is full and symmetrical Cardio: Tachycardic, no murmurs GI: Round, normoactive BS x4, tender to palpation of lower abdomen; Note 3 hats were ween in bathroom with BR blood present in them, produced photos of home bloody BMs which appeared to have a notable amount of blood MSK: FROM of extremities, no deformities Extremities: no edema Neuro: A&Ox4, cooperative Discharge Plan Discharge Items Patient Disposition: Transfer Acute Care Hospital Reason For Visit: BRBPR Discharge Diagnosis: BRBPR w/ newly found ascending aortic thoracic aneurysm of 7cm Condition on Discharge: Good Activity: Resume your previous activity Non-emergency contact: Primary Care Provider Call non-emergency contact if: you have any medication questions and your symptoms worsen Follow-up/Referrals: Floresita Dixon [Primary Care Provider] - (Follow-up within one week of d/c) Diet: Regular Addtl Attending Provider Instructions: Pt is a 65 M with a PMHx significant for Asthma, Hypothyroidism, HTN, HLD, BPH who presented to the ED c/o BRBPR w/ AM BMs. While in the ED, pt received CTAP revealed moderate colonic diverticulosis without evidence of diverticulitis, enlarged prostate w/ bladder outlet obstruction, bladder wall thickening suggestive of cystitis, hepatomegaly w/ severe steatosis, nonobstructing Lt renal calculi. H+H 13.8 --> 13.4 --> 11.4 --> 10.2 while in ED. pRBCs ordered and currently on standby. #Thoracic Aneurysm - 05/17 CTA of Abdomen and Pelvis w/ fusiform ascending thoracic aorta measuring up to 7cm; Pt w/out CP and palpitations at time of admission -BP 107/51, pt currently asx -CT results discussed with Dr Miller, who additionally reviewed CT; pt should be transferred to tertiary care facility -Messaged Dr Hernandez to notify about results of CT Actively working on transfer to tertiary care facility so that patient may be assessed by cardiothoracic surgery. #BRBPR | Diarrhea | Diverticulitis - Last Colonoscopy 04/2021 from [facility], pt unable to access records on portal; 05/17 CTAP w/ diverticulosis w/ no acute evidence of diverticulitis; 05/17 CTA-AP w/ mild acute diverticulitis of ascending and transverse colon, no abscess or obstruction -GI consulted -NPO -Protonix 40mg IV BID -NSS 0.9 @80 mL/hr -Monitor VS closely -STAT H+H ordered -H+H Q4H, monitor closely -CBC, BMP in AM -2 units pRBCs ordered. If additional units needed or pt becomes hemodynamically unstable, MTP should be initiated. #Sinus Pause noted on Rhythm Strip in ED - -Most likely vagal event secondary to blood loss -Admit Med/Tele -EKG prn palpitations or chest pain #Hypothyroidism - No acute concerns -Continue Levothyroxine 50mcg #HTN | HLD - No acute concerns -Continue Lisinopril 10, pravastatin 40 #Asthma - No acute concerns -Continue Albuterol #BPH - Not currently managed with medication; 05/17 CTAP w/ enlarged prostate w/ bladder outlet obstruction + bladder wall thickening consistent w/ cystitis - pt is asx #Rosacea - no acute concerns -Doxycycline 100 po daily VTE Proph: SCDs, chemo proph deferred d/t rectal bleeding Dispo: Admit Med/Tele Pending Studies at Discharge: No Stand-Alone Forms: My [facility] Skilled Items Patient informed of condition?: Yes DNR: No Discharge Level of Care: Other Communicable Disease: No Discharge Prognosis: Stable Lines: Peripheral IV Urinary Catheter: No Medications and DC Order Prescriptions: No Action ciprofloxacin HCl [Cipro] 500 mg Tablet 500 mg PO BID Rx Instructions: STARTED 02/19/18 FOR 10 DAYS. sildenafil 25 mg Tablet 25 mg PO DAILY PRN (Reason: Erectile Dysfunction) tamsulosin [Flomax] 0.4 mg Capsule 0.4 mg PO DAILY levothyroxine 50 mcg Tablet 50 mcg PO DAILY montelukast [Singulair] 10 mg Tablet 10 mg PO PM pravastatin 20 mg Tablet 20 mg PO DAILY albuterol sulfate [ProAir HFA] 90 mcg/actuation Hfa Aerosol Inhaler 2 puff INHALATION Q4 PRN (Reason: Shortness Of Breath Or Wheezing) lisinopril 2.5 mg Tablet 2.5 mg PO DAILY doxycycline hyclate 100 mg Tablet 100 mg PO DAILY amyciggs-nbj-WR-lycopen-lutein [Centrum Silver] 0.4-300-250 mg-mcg-mcg Tablet 1 tab PO DAILY Lactobacillus acidophilus [Probiotic] 10 billion cell Capsule 1 cap PO TIDM Discharge Orders: Discharge Order (Routine); Ordered 05/17/25 Ordered By: Ning Corley Admission Data Admit Date/Time: 05/17/25 14:56 Attending Provider: Eduin Raymond Admit Provider: Eduin Raymond Primary Care Provider: Floresita Dixon Other Providers: Ediun Raymond; Carlos Hernandez I Hospital Stay Data Consultations 05/17/25 13:25 ED Decision to Admit Stat 05/17/25 13:33 Consult Gastroenterology Stat Diagnostic Imagining Performed 05/17/25 14:24 CTA abdomen pelvis w con [CT angio abdomen pelvis w con] Stat Discharge Instructions Given to Patient (Per Discharging Provider) Pt is a 65 M with a PMHx significant for Asthma, Hypothyroidism, HTN, HLD, BPH who presented to the ED c/o BRBPR w/ AM BMs. While in the ED, pt received CTAP revealed moderate colonic diverticulosis without evidence of diverticulitis, enlarged prostate w/ bladder outlet obstruction, bladder wall thickening suggestive of cystitis, hepatomegaly w/ severe steatosis, nonobstructing Lt renal calculi. H+H 13.8 --> 13.4 --> 11.4 --> 10.2 while in ED. pRBCs ordered and currently on standby. #Thoracic Aneurysm - 05/17 CTA of Abdomen and Pelvis w/ fusiform ascending thoracic aorta measuring up to 7cm; Pt w/out CP and palpitations at time of admission -BP 107/51, pt currently asx -CT results discussed with Dr Miller, who additionally reviewed CT; pt should be transferred to tertiary care facility -Messaged Dr Hernandez to notify about results of CT Actively working on transfer to tertiary care facility so that patient may be assessed by cardiothoracic surgery. #BRBPR | Diarrhea | Diverticulitis - Last Colonoscopy 04/2021 from [facility], pt unable to access records on portal; 05/17 CTAP w/ diverticulosis w/ no acute evidence of diverticulitis; 05/17 CTA-AP w/ mild acute diverticulitis of ascending and transverse colon, no abscess or obstruction -GI consulted -NPO -Protonix 40mg IV BID -NSS 0.9 @80 mL/hr -Monitor VS closely -STAT H+H ordered -H+H Q4H, monitor closely -CBC, BMP in AM -2 units pRBCs ordered. If additional units needed or pt becomes hemodynamically unstable, MTP should be initiated. #Sinus Pause noted on Rhythm Strip in ED - -Most likely vagal event secondary to blood loss -Admit Med/Tele -EKG prn palpitations or chest pain #Hypothyroidism - No acute concerns -Continue Levothyroxine 50mcg #HTN | HLD - No acute concerns -Continue Lisinopril 10, pravastatin 40 #Asthma - No acute concerns -Continue Albuterol #BPH - Not currently managed with medication; 05/17 CTAP w/ enlarged prostate w/ bladder outlet obstruction + bladder wall thickening consistent w/ cystitis - pt is asx #Rosacea - no acute concerns -Doxycycline 100 po daily VTE Proph: SCDs, chemo proph deferred d/t rectal bleeding Dispo: Admit Med/Tele Total Time Total Time Spent Total Time Spent (In Minutes): Time spent day of discharge 128 minutes including direct patient care, medication reconciliation, documentation, review of labs and images, and coordination of care. Coding Level of Care Code INP/OBS EV SAME DAY LV 3,85MIN Diagnoses BRBPR (bright red blood per rectum) K62.5 Diarrhea R19.7 Hypothyroidism E03.9 HTN (hypertension) I10 Hyperlipidemia E78.5
[2025-05-17 21:11] VITALS: RESP 20
[2025-05-17 22:41] VITALS: O2SAT 97
[2025-05-17 22:53] VITALS: BP 148/97; PULSE 107; TEMP 98.9
[2025-05-17] MEDS ORDERED: PIPERACILLIN/TAZOBACTAM 4.5 GM/100 ML BAG IV SCH (23:00)
[2025-05-18] MEDS ORDERED: LEVOTHYROXINE SODIUM 50 MCG TABLET PO SCH (06:30)
[2025-05-18] MEDS ORDERED: DOXYCYCLINE HYCLATE 100 MG CAP PO SCH (09:00)
[2025-05-18] MEDS ORDERED: CEROVITE ADV FORMULA TAB PO SCH (09:00)
--- NOTE | 2025-05-18 18:57 | Electrocardiogram Report ---
Test Reason : Blood Pressure : */* mmHG Vent. Rate : 102 BPM Atrial Rate : 102 BPM P-R Int : 184 ms QRS Dur : 86 ms QT Int : 334 ms P-R-T Axes : 47 -11 42 degrees QTcB Int : 435 ms Sinus tachycardia Minimal voltage criteria for LVH, may be normal variant Cannot rule out Inferior infarct , age undetermined Abnormal ECG When compared with ECG of 20-Feb-2018 21:19, ST now depressed in Inferior leads Confirmed by Ricci Botello ([id number]) on 05/18/2025 6:57:23 PM Referred By: Floresita Dixon Confirmed By: Ricci Botello
--- NOTE | 2025-05-19 06:00 | Coding Query ---
CODING QUERY To promote full compliance with coding requirements relating to patient care, provider participation is requested in all cases of medical psychotherapist uncertainty. Please assist us with the question(s) below: Coding Question(s): Patient admitted with severe rectal bleed; GI consulted. Radiology imaging revealed an ascending thoracic aneurysm. Pt was transfused 2 Units of packed cells for the rectal bleed. Please document the diagnosis responsible for the transfusion. Thanks for your help. Bernardo Brizuela, [facility] Physician's Response(s): Acute and severe GI bleed. Transfusion initiated secondary to acute and ongoing bleed, decompensating vital signs. decreasing BP and sustained tachycardia. Principal Diagnosis: "that condition established after study, to be chiefly responsible for occasioning the admission of the patient to the hospital for care." Co-Existing Principal Diagnosis: "when two or more diagnoses equally meet the criteria for principal diagnosis as determined by the circumstances of admission, diagnostic work up, and/or therapy provided, and the Alphabetic Index, Tabular List, or another coding guideline does not provide sequencing direction, any one of the diagnoses may be sequenced first." "When the physician has documented what appears to be a current diagnosis in the body of the record, but has not included the diagnosis in the final diagnostic statement, the physician should be asked whether the diagnosis should be added." (Source Coding [facility] 2 QTR90. p3-4) ROSSI
== END 2025-05-17 23:00 | disposition short-term general hospital (02) | DRG 378 ==
LOC: ED 11:25 → EDINP 14:56